=== PATIENT | male | born 1970 | race Caucasian/White ===

== ENCOUNTER → 2017-07-14 | Outpatient (CLI) | payer OTHER ==
[~2017-07-14] MED LIST: AMOX-559 PO; BLOO1STR16 MC; CINN500C12 PO; GLIM2TAB43 PO; LANC-648 MC; LEVI SUBQ; LISI20TA29 PO; METF-421 PO; SIMV-49 PO; SYRI-1525 MC
--- NOTE | 2017-07-26 08:20 | Medical Nutrition Therapy ---
Nutritional Education Nutrition Education Topic: Diabetic Nutrition Response to Teaching: Verbalize understanding Teaching Recipient: Patient Nutrition Counseling: late entry for 07/14/17. Pt was instucted on and recieved placement of CGM monitor. Removal scheduled for 07/20 with report sent to provider after that. CMG Insertion/Removal: Yes Nutrition Monitoring & Eval RD Patient Assessment Time: [address] Assessment Type: RD Re-Assessment Nutritional Comment: Placement and instuction provide of 6 day CGM monitor. Copies To Copies to: ZEYAD VELASQUEZ APRN, BETH Jul 26, 2017 08:20
== END ==
LOC: DIET 13:19
PROVIDERS: ATTEND Nurse Practitioner Family
DX: E11.9 Type 2 diabetes mellitus without complications (principal)
CPT/HCPCS: 95250